=== PATIENT | female | born 1955 | race African-American/Black ===

== ENCOUNTER 2016-12-10 22:25 | Inpatient (IN) | payer OTHER ==
--- NOTE | ~2016-12-10 | CO ---
Unit #: [id number] #: [id number] Patient: TONIA LOU [id number] [address] [address] [id number] I MR#: [id number] NAME: TONIA LOU ROOM: 229 Age: 61 Sex: F Admission Date: 12/11/2016 : 1955 Attending Physician: Alvarez Carlisle M.D. Primary Care Physician: [facility] Consultation Date: 12/11/2016 CONSULTATION REPORT REASON FOR CONSULTATION Critical care management. CHIEF COMPLAINT Altered mental status. HISTORY OF PRESENT ILLNESS This 61-year-old female with past medical history of hypertension, hypothyroidism, brought in with the complaint of altered mental status and has been found to be hyperglycemic with sugar of 703 and has acute kidney injury. I am seeing the patient at the bedside. Currently, she is very lethargic but is arousable. She does not follow commands. PAST MEDICAL HISTORY 1. Diabetes. 2. Hypertension. 3. Dyslipidemia. 4. Hypothyroidism. 5. Chronic kidney disease. 6. Hysterectomy. 7. . 8. Hernia repair. HOME MEDICATIONS Unknown. ALLERGIES No known drug allergies. SOCIAL HISTORY Unknown. FAMILY HISTORY Hypertension. REVIEW OF SYSTEMS Unobtainable. PHYSICAL EXAMINATION VITAL SIGNS: Temperature 98, pulse 67, respirations 12, blood pressure 190/95. NEUROLOGIC: She is confused and lethargic. LUNGS: Bilateral air entry, bilateral mild rhonchi. HEART: S1 plus S2. Unit #: [id number] #: [id number] Patient: TONIA LOU ABDOMEN: Nontender, soft. Positive bowel sounds. EXTREMITIES: No edema. SKIN: No rashes, no ulcers. LYMPHATIC: No lymphadenopathy. DIAGNOSTIC STUDIES LABORATORY: Reviewed. IMAGING: Reviewed. ASSESSMENT AND PLAN 1. Altered mental status, rule out meningitis. 2. Uncontrolled diabetes. 3. Hypothyroidism. 4. Hypertension. 5. Zfrxk-tz-ylapxyd kidney disease. PLAN 1. Switch the insulin to the subcu insulin and continue IV fluid. 2. Taper antibiotics. 3. Will attempt an LP. 4. Neuro checks q.4 h. 5. Aspiration and fall precautions. 6. ICU protocol to control blood pressure. 7. Patient will be closely monitored. 8. Please see orders for detailed plan. 9. Will consider a neurology consultation as well. Dictated by... Farzad Bernal/ariana TD: 12/13/2016 21:15 JOB #: [id number] CONSULTATION REPORT Page 1 of 1 X Branden Powell MD CONSULTATION REPORT
--- NOTE | ~2016-12-10 | HP ---
Unit #: [id number] #: [id number] Patient: TONIA LOU [id number] [address] [place], [place] [address] [id number] I MR#: [id number] NAME: TONIA LOU ROOM: [id number] Age: 61 Sex: F Admission Date: 12/11/2016 : 1955 Attending Physician: Cindy Winchester M.D. Primary Care Physician: [facility]. HISTORY AND PHYSICAL CHIEF COMPLAINT Confusion and hyperglycemia. HISTORY This 61-year-old female with AODM, hypertension, hypothyroidism, was brought in by family for confusion. Family is no longer present. I am told that they gave history to the ER staff that the patient has become increasingly confused and hyperglycemic for the past few days. She was brought to this emergency department late last evening where she was combative, requiring 20 mg of IM Geodon. She is found to be significantly hyperglycemic with a serum glucose of 703. She had a sodium of 124 which does correct. An insulin drip has been ordered, along with 10 IV of insulin. She is extremely confused on exam and cannot provide history. Of note, the patient was admitted to this facility 05/2015 for uncontrolled diabetes mellitus, acute kidney injury and toxic metabolic encephalopathy secondary to hyperglycemia. PAST MEDICAL HISTORY 1. AODM. 2. Hypertension. 3. Hyperlipidemia. 4. Hypothyroidism. 5. Admission 05/2015 for toxic metabolic encephalopathy secondary to uncontrolled diabetes mellitus, with acute kidney injury. 6. Chronic kidney disease. 7. Hysterectomy. 8. . 9. Hernia repair. ALLERGIES No known drug allergies. HOME MEDICATIONS Uncertain. Family left. FAMILY HISTORY Hypertension, diabetes mellitus. SOCIAL HISTORY Unknown. REVIEW OF SYSTEMS Impossible to obtain as patient is quite confused. Unit #: [id number] #: [id number] Patient: TONIA LOU PHYSICAL EXAMINATION GENERAL: Confused, 61-year-old morbidly obese female. VITAL SIGNS: Temperature has not yet been obtained. Pulse 108, respirations 20, blood pressure 208/179 initially, now 106/83. HEENT: Eyes - PERRLA. Pharynx - dry mucosal membranes. NECK: Supple without adenopathy. CHEST: Clear. CARDIAC: Normal S1 and S2 without murmur. ABDOMEN: Bowel sounds are present. No hepatosplenomegaly, tenderness, or masses. EXTREMITIES: Without clubbing, cyanosis or edema. Pedal pulses are present. NEUROLOGIC: Patient is confused. She is flailing her arms and legs. DIAGNOSTIC STUDIES ADMISSION LABS: Hematocrit 37.9, normal white count and platelet count, MCV is 80. SMA 12 - glucose is 703, creatinine 1.7, sodium 124, which does correct to 134, chloride is 86, albumin 3, alk phos 131, lactic acid 2.3. ABG - pH 7.43, pCO2 41, pCO2 62, O2 saturation is 21% on room air. Cardiac markers are negative. Urinalysis positive protein and glucose with 5-10 red cells, no white cells. IMAGING STUDIES: Head CT - no acute disease, old lacunar infarct noted. Bilateral proptosis noted. Chest x-ray - no acute disease. ASSESSMENT 1. Confusion, which may be related to toxic metabolic encephalopathy from hyperglycemia. The patient presented similarly in 2015. 2. Uncontrolled type 2 diabetes mellitus. 3. Hypothyroidism. 4. Hypertension. 5. Chronic kidney disease. PLANS 1. Insulin drip. 2. Rocephin, vancomycin, and one dose of acyclovir until reassessed in the morning. Patient may need lumbar puncture if not improving. 3. IV fluids. 4. SCDs for DVT prophylaxis. 5. Monitor chemistries carefully. 6. Check thyroid function test. 7. EKG, temperature, and urine tox screen. 8. Blood pressure control. 9. Further plans depending on above. 10. Will check blood cultures. Dictated by Cindy Winchester M.D. AML/ts TD: 12/11/2016 05:46 Unit #: [id number] #: [id number] Patient: TONIA LOU JOB #: [id number] HISTORY AND PHYSICAL Page 1 of 1 X Cindy Winchester MD X HISTORY AND PHYSICAL
--- NOTE | ~2016-12-10 | FU ---
[facility] Nutrition Therapy DATE: 12/16/16 Patient: TONIA LOU Physician: ADRIA Address: [address] [facility] Room/Bed: [address] [place] [address], Zip: [place] [address] Admit Date: 12/11/16 Date of : [birth year] Height: 5 6 Weight: 263 119.5 NUTRITION MONITORING/FOLLOW-UP: Reason: CONSULT RE: DM EDUCATION RD PROVIDED WRITTEN AND VERBAL CC DIET EDUCATION. RD RE-EMPHASIZED IMPORTANCE OF CUTTING BACK ON SUGAR-SWEETENED BEVERAGES WELL FOLLOWING A CONSISTENT MEAL SCHEDULE W/BALANCED MEALS. PT REPORTS DRINKING SODA DAILY AND WILLING TO CUT BACK ON SODA INTAKE AND DRINK MORE WATER. PT REPORTED NO DIET QUESTIONS AT THIS TIME. RD TO REMAIN AVAILABLE. EXPECT PT TO HAVE MILD COMPLIANCE. RECOMMENDATIONS: 1. ENCOURAGE COMPLIANCE OF CURRENT DIET ORDER-CC+HH 2. RE-CONSULT RD IF FURTHER DIET EDUCATION NEEDED/REQUESTED Respectfully, BRANDI BELL MS, RD, LD Food and Nutritional Services [facility] cc: client file
--- NOTE | ~2016-12-10 | A ---
[facility] Nutrition Therapy DATE: 12/13/16 Patient: TONIA LOU Physician: ADRIA Address: [address] [facility] Room/Bed: [address], Zip: [place] [id number] Admit Date: 12/11/16 Date of : [birth year] Height: 5 6 Weight: 263 119.5 NUTRITIONAL ASSESSMENT: REASON: DIET EDUCATION CONSULT RD PROVIDED WRITTEN AND VERBAL CC+ WEIGHT LOSS DIET EDUCATION. RD PROVIDED LIST OF FOODS TO AVOID/LIMIT AND FOODS TO EAT MORE OFTEN. RD EMPHASIZED CONSISTANT MEAL PATTERN AND IMPORTANCE OF CUTTING BACK ON SUGAR-SWEETENED BEVERAGES. PT REPORTS DRINKING A LOT OF SODAS + CONSUMES FRIED FOOD DAILY. PT WILLING TO CUT BACK ON SODA INTAKE AND DRINK MORE WATER AND CUT BACK ON FRIED FOOD INTAKE. PT AND FAMILY REPORTED NO DIET QUESTIONS/CONCERNS AT THIS TIME. RD TO REMAIN AVAILABLE. RECOMMENDATIONS: 1. CONTINUE TO ENCOURAGE COMPLIANCE OF CURRENT DIET ORDER-CC+HH RD WILL F/U PER PROTOCOL Respectfully, BRANDI BELL MS, RD, LD Food and Nutritional Services [facility] cc: client file
--- NOTE | ~2016-12-10 | BMI ---
[facility] Nutrition Therapy DATE: 12/12/16 Patient: TONIA LOU Physician: ADRIA Address: [address] [facility] Room/Bed: [address], Zip: [place] [address] Admit Date: 12/11/16 Date of : [birth year] Height: 5 6 Weight: 255 116 HIGH BMI NOTE: DX: 61 Y.O. FEMALE ADMITTED FOR CONFUSION, UNCONTROLLED DM ANTHROPOMETRICS: 5'6", WT: 255# (116 KG), BMI: 41.2 DIET: NPO INTERVENTION: 1. NPO RECOMMENDATIONS: 1. ONCE MEDICALLY FEASIBLE, ADVANCE DIET INDICATED TO CC+HH TO PROMOTE GRADUAL WEIGHT LOSS TOWARDS HEALTHY BMI (19.0-25.0) OR +/-10%IBW RD WILL F/U PER PROTOCOL Respectfully, BRANDI BELL MS, RD, LD Food and Nutritional Services [facility] cc: client file
--- NOTE | ~2016-12-10 | CT71 ---
[facility] A Service of [facility] RADIOLOGY TEXT RESULTS PATIENT: TONIA LOU LOCATION: [address] : [birth year] UNIT #: [id number] AGE: [address]: Alvarez Carlisle MD SEX: F ORDER DR: [id number] [place] [id number] [facility]. [place], [place] [address] [id number] I MR#: [id number] Acc #: [id number] NAME: TONIA LOU : 1955 SEX: F STUDY DATE/TIME: 12/10/2016 22:27 UNIT: CIC2 ROOM: [facility] STUDY DESCRIPTION: CT Head Wo Contrast Attending Physician: Alvarez Carlisle M.D. Ordering Physician: Sly Sierra M.D. Primary Care Physician: [facility] MEDICAL IMAGING REPORT This report is preliminary unless electronic signature is present EXAM Head CT without, 12/10/2016 HISTORY Altered mental status. Disoriented. Incoherent. Confused since this morning. Combative for the study. TECHNIQUE Routine noncontrast head CT is reviewed. The study is limited by patient motion. This CT exam was performed with one or more of the following radiation dose reduction techniques: automatic exposure control, adjustment of mA and/or kV according to patient size, and iterative reconstruction. FINDINGS There is no displaced calvarial fracture. The visualized paranasal sinuses essentially clear, probably some fluid or inflammatory change right side mastoid air cells. Allowing for the motion, no gross acute intracranial hemorrhage. Chronic insult to the right anterior basal ganglia noted with encephalomalacic cavity up to about 1.3 cm largest dimension. No intracranial mass effect. Basilar cisterns are grossly patent. No hydrocephalus. Probably some chronic malacic change to the left frontal cortex laterally. No obvious acute cortical infarct but if this remains of clinical concern suggest followup imaging, referably with an MRI if the patient is a candidate. The patient has proptosis. Please correlate for any clinical concern for thyroid eye disease. IMPRESSION [facility] A Service of [facility] RADIOLOGY TEXT RESULTS PATIENT: TONIA LOU LOCATION: [address] : 53 UNIT #: [id number] AGE: [address]: Alvarez Carlisle MD SEX: F ORDER DR: 1. Motion-limited study. Allowing for this, no acute intracranial abnormality is definitely appreciated. If there is clinical concern for acute CVA followup imaging is recommended, preferably with MRI if the patient is a candidate. 2. 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 3. Bilateral proptosis. Please correlate further clinically. Is there any evidence for thyroid eye disease? Dictated by... Jil Bass M.D. THIS IS AN ELECTRONICALLY VERIFIED REPORT Jil Bass M.D. at 12/11/2016 2:45 PM BRIAN/shraddha TD: 12/11/2016 12:49 JOB #: [id number] MEDICAL IMAGING REPORT Page 1 of 1 COPY
--- NOTE | ~2016-12-10 | EKG ---
PATIENT: TONIA LOU UNIT #: [id number] Ventricular Rate: 116 BPM Atrial Rate: 116 BPM P-R Interval: 134 ms QRS Duration: 76 ms Q-T Interval: 328 ms QTC Calculation(Bezet): 455 ms P [place]: 69 degrees Calculated R [place]: 19 degrees Calculated T [place]: 74 degrees Diagnosis Line: Sinus tachycardia Diagnosis Line: Left atrial enlargement Diagnosis Line: T wave abnormality, consider anterolateral Diagnosis Line: ischemia Diagnosis Line: Abnormal ECG Diagnosis Line: When compared with ECG of 24-MAY-2015 10:37, Diagnosis Line: Nonspecific T wave abnormality now evident in Diagnosis Line: Anterolateral leads Diagnosis Line: Confirmed by ANA SHERIDAN MD ([id number]) on 12/12/2016 Diagnosis Line: 9:18:05 AM INTERPRETING MD: ARVIN DICKINSON
--- NOTE | ~2016-12-10 | CR72 ---
[facility] A Service of [facility] RADIOLOGY TEXT RESULTS PATIENT: TONIA LOU LOCATION: [address] : 53 UNIT #: [id number] AGE: [address]: Alvarez Carlisle MD SEX: F ORDER DR: [id number] [facility] [address] [place], [place] [address] [id number] I MR#: [id number] Acc #: [id number] NAME: TONIA LOU : 1955 SEX: F STUDY DATE/TIME: 12/10/2016 21:50 UNIT: [facility] ROOM: [facility] STUDY DESCRIPTION: CR Chest Single View Portable Attending Physician: Alvarez Carlisle M.D. Ordering Physician: Jerome Gonzales M.D. Primary Care Physician: On License Of [facility]. MEDICAL IMAGING REPORT This report is preliminary unless electronic signature is present EXAM AP portable chest 12/10/2016 HISTORY 61-year-old female in the ED complaining of shortness of air, weakness and disorientation beginning earlier this morning. TECHNIQUE AP portable chest x-ray. FINDINGS Heart size and pulmonary vascularity are within normal limits given AP portable technique. No visible pulmonary infiltrate or pleural effusion. No significant change since 05/24/2015. IMPRESSION No active disease. Dictated by... López Phillip M.D. THIS IS AN ELECTRONICALLY VERIFIED REPORT López Phillip M.D. at 12/11/2016 10:05 PM MAX/nga TD: 12/11/2016 12:49 JOB #: [id number] MEDICAL IMAGING REPORT Page 1 of 1 COPY
--- NOTE | ~2016-12-10 | DS ---
Unit #: [id number] #: [id number] Patient: TONIA LOU [id number] [address] [place], [place] [address] [id number] I MR#: [id number] NAME: TONIA LOU ROOM: 229 Age: 61 Sex: F Admission Date: 12/11/2016 : 1955 Discharge Date: 12/16/2016 Attending Physician: Abraham Sharp M.D. Primary Care Physician: [facility]. DISCHARGE SUMMARY DISCHARGE DIAGNOSES 1. Hyperosmotic hyperglycemic nonketotic, resolved at this time. 2. Toxic metabolic encephalopathy due to #1, resolved. 3. Type 2 diabetes with hyperglycemia, uncontrolled A1c at 15, blood sugar is improving. 4. Likely obstructive sleep apnea. Will follow up with (1) outpatient. 5. Deconditioning. She will be discharged to rehab. 6. Acute kidney injury on chronic stage 2 kidney disease. Creatinine today is 1.1. 7. Hyponatremia. Sodium today is 127. [employer] REPRESENTATIVE Dr. Powell of Pulmonary. PROCEDURES None. DIAGNOSTIC STUDIES LABORATORY: BMP with glucose of 163, BUN 20, creatinine 1.1, sodium 127, potassium 4.5, chloride 97, CO2 of 22, calcium 8, phosphorus 2, magnesium 2.2, total protein 5.8, albumin 2.1, total bilirubin 0.5, AST 14, ALT 12, and alkaline phosphatase 87. When assessed, her total cholesterol was 220, triglycerides 190, LDL 156, and HDL 26. When assessed, her TSH was 1.21 and free T4 was 1.12. CBC with WBC of 8.4, RBC 3.69, hemoglobin 9.2, hematocrit 28.7, MCV 77.7, MCH 24.9, MCHC 32, RDW 14.1, platelets 288,000, and MPV is 9.2. IMAGING: Chest x-ray on December 10, 2016, impression: No active disease. Head CT on December 10, 2016, impression: No acute intracranial abnormality is definitely appreciated. Old lacunar-type insult, right anterior basal ganglia, and probably a small focus of cortical malacia at the left lateral frontal cortex. Bilateral proptosis. HOSPITAL COURSE Patient is a pleasant 61-year-old female with a past medical history of type 2 diabetes, essential hypertension, and hypothyroidism, who was brought to the emergency department by her family due to confusion. Patient had become increasingly confused and hyperglycemic in the past couple of days prior to admission. In the emergency department, she was combative requiring 20 mg of IM Geodon. She was found to be significantly hyperglycemic with a serum glucose of 703. She had a sodium of 124. An insulin drip was utilized. She was admitted through the emergency department on an insulin drip and was empirically treated with Rocephin, Unit #: [id number] #: [id number] Patient: DASHA,TONIA vancomycin, and acyclovir. For her altered mental status and confusion, we had checked an ammonia level which was unremarkable found to be at 27. Dr. Lu [facility] was consulted for intensive care management. The following day, patient's blood glucose was much improved. It was down to 228. Therefore, it was felt that patient was stable to start subcutaneous long-acting insulin and to discontinue the IV insulin drip, and she was transferred back down to a regular telemetry bed. After resolution of the hyperosmotic hyperglycemic event, patient was much more alert and oriented and was participating much better. We had considered doing a lumbar puncture for patient's state of much altered mental status, but due to resolution of the toxic metabolic encephalopathy state and blood culture with no growth, IV antibiotics and acyclovir were discontinued, and lumbar puncture was not needed. We did ask Speech Therapy to evaluate patient, and she was found to have no signs of aspiration. Therefore, she was resumed on a heart-healthy diet. With regards to her current state, we did assess a lipid panel which did find that her total cholesterol was 220 and triglycerides were 190. Therefore, Lipitor was started. At this time, patient's reason for admission of altered mental status thought secondary to the hyperosmotic hyperglycemic state has resolved, but she has deconditioned much. Therefore, she was seen in consultation by Physical and Occupational Therapy who has recommended that patient continue with therapy at a subacute rehab facility. DISPOSITION She is discharged in stable condition to [facility]. FOLLOWUP 1. Follow up with Dr. Powell in two weeks. 2. Follow up with primary care physician within one to two weeks. DISCHARGE DIET Heart-healthy with consistent carbohydrate diet. DISCHARGE INSTRUCTIONS 1. Please obtain routine vitals upon admission and routinely thereafter. 2. Accu-Cheks before meals and at bedtime. ACTIVITY Resume activity with PT and OT. Ambulate every day as tolerated. DISCHARGE MEDICATIONS 1. Gabapentin. We will be reducing this to 100 mg orally at bedtime, stopping the amitriptyline at that time. 2. Metformin 1000 mg orally twice daily. 3. Zyrtec 10 mg orally daily. 4. Norvasc 10 mg orally daily. 5. Toprol-XL 150 mg orally daily. 6. Lipitor 40 mg orally at bedtime. 7. Accupril 40 mg orally daily. 8. Lantus 36 units subcutaneously daily. 9. NovoLog low-dose sliding scale prior to meals and at bedtime. Unit #: [id number] #: [id number] Patient: TONIA LOU 10. Levothyroxine 0.112 mg orally daily. This discharge took 45 minutes to include patient education and to coordinate care. Dictated by... Js Kelsey PA-C for Farzad Khan TD: 12/16/2016 16:41 JOB #: [id number] CC: [facility] 2a DISCHARGE SUMMARY Page 1 of 1 X X DISCHARGE SUMMARY
[2016-12-10 21:34] LABS: BASOPHIL# 0.1 X10e3 (0-0.3); BASOPHIL% 0.9 % (0-2.5); HEMATOCRIT 37.9 % (35.0-45.0); HEMOGLOBIN 11.7 gm/dL (12.0-16.0); LYMPHOCYTE# 2.2 X10e3 (1.0-3.5); MEAN CELL VOLUME 79.7 FL (83-96); MEAN CORPUSCULAR HEMOGLOBIN 24.7 PG (28-34); MEAN PLATELET VOLUME 9.4 FL (6.5-11.5); MONOCYTE# 0.5 X10e3 (0-1.0); MONOCYTE% 7.1 % (3.0-12.0); NEUTROPHIL# 4.7 X10e3 (1.5-7.1); PLATELET COUNT 299 X10e3 (140-420); RED BLOOD COUNT 4.76 X10e (3.90-5.30); RED CELL DISTRIBUTION WIDTH 14.9 % (11.0-15.5); WHITE BLOOD COUNT 7.4 X10e3 (4.0-10.5)
[2016-12-10 21:38] LABS: DIFF IND NO
[2016-12-10 22:00] LABS: BETA HYDROXYBUTYRATE 0.15 MMOL/L (0.02-0.27); BILIRUBIN, DIRECT 0.1 mg/dL (0.0-0.2); BILIRUBIN,INDIRECT 0.6 mg/dL (0.0-0.9); BILIRUBIN,TOTAL 0.7 mg/dL (0.2-2.0); CALCIUM SERUM 8.6 mg/dL (8.4-10.2); CREATININE SERUM 1.7 mg/dL (0.6-1.4); POTASSIUM 4.3 mmol/L (3.5-5.1); PROTEIN TOTAL SERUM 7.9 g/dL (6.0-8.3)
[~2016-12-10 22:25] MED LIST: ACCUPRIL40 MG PO; ALLERGY10 M2 PO; ASPIRIN EC81 M1 PO; CHLORTHALIDONE50 M1 PO; DOXYCYCLINE HY100 M1 PO; FIORICET 50-321 EACH PO; LANTUS100 U/ML SUBQ; LANTUS100 UNITS/ SUBQ; LIPITOR40 MG PO; METFORMIN HCL500 M1 PO; METFORMIN PO; NEURONTIN300 MG PO; NORVASC PO; NORVASC10 MG PO; SYNTHROID112 MCG PO; TOPROL XL50 MG PO; TRAMADOL HCL50 M2 PO
[2016-12-10 22:37] LABS: POC - CKMB 2.1 ng/mL (0.0-7.9); POC - TROPONIN <0.05 ng/mL (<=0.05)
[2016-12-10 22:49] LABS: URINE SOURCE CLEAN CATCH
[2016-12-10 22:52] LABS: URINE APPEARANCE CLOUDY; URINE BILIRUBIN NEG (NEG); URINE BLOOD 1+ (NEG); URINE COLOR YELLOW; URINE GLUCOSE >1000 MG/DL (NEG); URINE KETONE NEG (NEG); URINE LEUKOCYTE ESTERASE NEG (NEG); URINE NITRATE NEG (NEG); URINE PROTEIN 2+ (NEG); URINE SPECIFIC GRAVITY 1.033 (1.003-1.035); URINE UROBILINOGEN 0.2 MG/DL (NEG)
[2016-12-10 22:55] LABS: URINE BACTERIA AUWI NEG (NEGATIVE); URINE SQUAMOUS EPITHELIAL CELL NONE SEEN /[HPF]; UWBCS1 AUWI 0-2 (0-5)
[2016-12-10 23:05] LABS: CULTURE INDICATED? NO
[2016-12-10 23:13] LABS: ARTERIAL BLD GAS O2 SATURATION 91.2 % (90.0-100.0); ARTERIAL BLOOD GAS CARBOXY HB 0.7 %sat (0.0-9.0); ARTERIAL BLOOD GAS HCO3 27.8 mmol/L; ARTERIAL BLOOD GAS MET HB 0.7 %sat (0.0-2.0); ARTERIAL BLOOD GAS PCO2 41.2 mmHg (35.0-45.0); ARTERIAL BLOOD GAS pH 7.437 (7.350-7.450)
[2016-12-10 23:14] LABS: ARTERIAL BLOOD GAS ALLEN TEST NORMAL; ARTERIAL BLOOD GAS ART SITE LEFT RADIAL; ARTERIAL BLOOD GAS DELIVERY ROOM AIR; ARTERIAL BLOOD GAS PO2 62.1 mmHg (80.0-100); ARTERIAL DRAW? YES
[2016-12-11 08:06] LABS: BASOPHIL# 0.1 X10e3 (0-0.3); BASOPHIL% 0.6 % (0-2.5); DIFF IND NO; HEMATOCRIT 30.9 % (35.0-45.0); LYMPHOCYTE# 1.9 X10e3 (1.0-3.5); LYMPHOCYTE% 21.5 % (17.0-45.0); MEAN CELL VOLUME 77.5 FL (83-96); MEAN CORPUSCULAR HGB CONC 32.2 g/dL (30-36); MEAN PLATELET VOLUME 9.7 FL (6.5-11.5); MONOCYTE# 0.7 X10e3 (0-1.0); MONOCYTE% 8.1 % (3.0-12.0); NEUTROPHIL# 6.1 X10e3 (1.5-7.1); NEUTROPHIL% 69.8 % (40-75); PLATELET COUNT 233 X10e3 (140-420); RED BLOOD COUNT 3.98 X10e (3.90-5.30); RED CELL DISTRIBUTION WIDTH 14.6 % (11.0-15.5); THYROID STIMULATING HORMONE 1.21 uIU/ml (0.34-5.60); WHITE BLOOD COUNT 8.8 X10e3 (4.0-10.5)
[2016-12-11 08:13] LABS: ALBUMIN SERUM 2.3 g/dL (3.5-5.0); ALKALINE PHOSPHATASE 87 U/L (32-92); ALT (SGPT) 12 U/L (10-40); AST (SGOT) 12 U/L (10-42); BILIRUBIN,TOTAL 0.6 mg/dL (0.2-2.0); BLOOD UREA NITROGEN 12 mg/dL (9-23); CALCIUM SERUM 7.3 mg/dL (8.4-10.2); CARBON DIOXIDE 22 mmol/L (22-31); CHLORIDE 93 mmol/L (100-111); CREATININE SERUM 1.1 mg/dL (0.6-1.4); FREE THYROXIN (T4) 1.12 ng/dL (0.58-1.64); GLOM FILT RATE Estimated ABOVE60 mL/min (>60); GLUCOSE FASTING 228 mg/dL (70-110); POTASSIUM 3.2 mmol/L (3.5-5.1); PROTEIN TOTAL SERUM 6.1 g/dL (6.0-8.3)
[2016-12-11 08:14] LABS: SODIUM 123 mmol/L (135-145)
[2016-12-11] MEDS ORDERED: LEVOTHYROXINE112 MCG PO (10:00)
[2016-12-11] MEDS ORDERED: METFORMIN HCL500 M1 PO (10:00)
[2016-12-11] MEDS ORDERED: LANTUS100 U/ML SUBQ (10:01)
[2016-12-11] MEDS ORDERED: NORVASC10 MG PO (10:01)
[2016-12-11] MEDS ORDERED: ZYRTEC10 M2 PO (10:01)
[2016-12-11] MEDS ORDERED: AMITRYPTYLINE PO (10:02)
[2016-12-11] MEDS ORDERED: GABAPENTIN300 M2 PO (10:02)
[2016-12-11] MEDS ORDERED: ACCUPRIL40 MG PO (10:02)
[2016-12-11] MEDS ORDERED: TOPROL XL PO (10:03)
[2016-12-11 13:34] LABS: BUN/CREATININE RATIO 9.23; CALCIUM SERUM 7.8 mg/dL (8.4-10.2); CREATININE SERUM 1.3 mg/dL (0.6-1.4); GLOM FILT RATE Estimated 53.2 mL/min (>60); POTASSIUM 3.6 mmol/L (3.5-5.1)
[2016-12-11 13:39] LABS: AMPHETAMINE NEG (NEG); BARBITURATES NEG (NEG); BENZODIAZEPINES NEG (NEG); COCAINE NEG (NEG); MARIJUANA NEG (NEG); OPIATES NEG (NEG); TRICYCLIC ANTIDEPRESSANTS POS (NEG); U METHADONE NEG (NEG)
[2016-12-12 05:34] LABS: BASOPHIL# 0.1 X10e3 (0-0.3); BASOPHIL% 0.9 % (0-2.5); HEMATOCRIT 31.6 % (35.0-45.0); LYMPHOCYTE# 2.3 X10e3 (1.0-3.5); LYMPHOCYTE% 32.1 % (17.0-45.0); MEAN CELL VOLUME 78.7 FL (83-96); MEAN CORPUSCULAR HEMOGLOBIN 24.8 PG (28-34); MEAN CORPUSCULAR HGB CONC 31.5 g/dL (30-36); MEAN PLATELET VOLUME 9.3 FL (6.5-11.5); MONOCYTE# 0.6 X10e3 (0-1.0); MONOCYTE% 9.1 % (3.0-12.0); NEUTROPHIL# 4.1 X10e3 (1.5-7.1); NEUTROPHIL% 57.9 % (40-75); PLATELET COUNT 236 X10e3 (140-420); RED BLOOD COUNT 4.02 X10e (3.90-5.30); RED CELL DISTRIBUTION WIDTH 14.7 % (11.0-15.5); WHITE BLOOD COUNT 7.1 X10e3 (4.0-10.5)
[2016-12-12 05:39] LABS: DIFF IND NO
[2016-12-12 06:21] LABS: ALBUMIN SERUM 2.1 g/dL (3.5-5.0); BILIRUBIN,TOTAL 0.2 mg/dL (0.2-2.0); BUN/CREATININE RATIO 11.53; CALCIUM SERUM 7.9 mg/dL (8.4-10.2); CREATININE SERUM 1.3 mg/dL (0.6-1.4); GLOM FILT RATE Estimated 53.2 mL/min (>60); POTASSIUM 4.5 mmol/L (3.5-5.1); PROTEIN TOTAL SERUM 5.6 g/dL (6.0-8.3)
[2016-12-12 12:36] LABS: CHOLESTEROL 220 mg/dL (0-200); HDL CHOLESTEROL 26 mg/dL (35-95); LDL/HDL RATIO 6 RATIO (0-4); TRIGLYCERIDES 190 mg/dL (10-160)
[2016-12-12 12:41] LABS: LDL CHOLESTEROL 156 mg/dL (-130)
[2016-12-13 05:30] LABS: BASOPHIL# 0.1 X10e3 (0-0.3); BASOPHIL% 0.9 % (0-2.5); HEMATOCRIT 33.5 % (35.0-45.0); HEMOGLOBIN 10.4 gm/dL (12.0-16.0); LYMPHOCYTE# 1.7 X10e3 (1.0-3.5); LYMPHOCYTE% 20.6 % (17.0-45.0); MEAN CELL VOLUME 78.9 FL (83-96); MEAN CORPUSCULAR HEMOGLOBIN 24.6 PG (28-34); MEAN CORPUSCULAR HGB CONC 31.2 g/dL (30-36); MEAN PLATELET VOLUME 9.7 FL (6.5-11.5); MONOCYTE# 0.8 X10e3 (0-1.0); MONOCYTE% 9.5 % (3.0-12.0); NEUTROPHIL# 5.6 X10e3 (1.5-7.1); PLATELET COUNT 247 X10e3 (140-420); RED BLOOD COUNT 4.24 X10e (3.90-5.30); RED CELL DISTRIBUTION WIDTH 15.1 % (11.0-15.5); WHITE BLOOD COUNT 8.1 X10e3 (4.0-10.5)
[2016-12-13 05:43] LABS: DIFF IND NO
[2016-12-13 06:20] LABS: ALBUMIN SERUM 2.1 g/dL (3.5-5.0); BILIRUBIN,TOTAL 0.5 mg/dL (0.2-2.0); BUN/CREATININE RATIO 11.66; CALCIUM SERUM 7.8 mg/dL (8.4-10.2); CREATININE SERUM 1.2 mg/dL (0.6-1.4); GLOM FILT RATE Estimated 55.7 mL/min (>60); POTASSIUM 4.9 mmol/L (3.5-5.1); PROTEIN TOTAL SERUM 5.8 g/dL (6.0-8.3)
[2016-12-14 05:41] LABS: HEMATOCRIT 29.9 % (35.0-45.0); HEMOGLOBIN 9.4 gm/dL (12.0-16.0); MEAN CELL VOLUME 78.9 FL (83-96); MEAN CORPUSCULAR HEMOGLOBIN 24.8 PG (28-34); MEAN CORPUSCULAR HGB CONC 31.5 g/dL (30-36); MEAN PLATELET VOLUME 9.7 FL (6.5-11.5); RED BLOOD COUNT 3.8 X10e (3.90-5.30); RED CELL DISTRIBUTION WIDTH 14.9 % (11.0-15.5)
[2016-12-14 06:36] LABS: BUN/CREATININE RATIO 13.12; CALCIUM SERUM 8.1 mg/dL (8.4-10.2); CREATININE SERUM 1.6 mg/dL (0.6-1.4); GLOM FILT RATE Estimated 39.4 mL/min (>60); MAGNESIUM 2.1 mg/dL (1.6-3.0); POTASSIUM 5.1 mmol/L (3.5-5.1)
[2016-12-15 06:29] LABS: HEMATOCRIT 28.6 % (35.0-45.0); HEMOGLOBIN 9.1 gm/dL (12.0-16.0); MEAN CORPUSCULAR HEMOGLOBIN 24.7 PG (28-34); MEAN CORPUSCULAR HGB CONC 31.7 g/dL (30-36); MEAN PLATELET VOLUME 9.2 FL (6.5-11.5); RED BLOOD COUNT 3.67 X10e (3.90-5.30); RED CELL DISTRIBUTION WIDTH 15.4 % (11.0-15.5); WHITE BLOOD COUNT 8.9 X10e3 (4.0-10.5)
[2016-12-15 06:51] LABS: BUN/CREATININE RATIO 15.71; CREATININE SERUM 1.4 mg/dL (0.6-1.4); GLOM FILT RATE Estimated 46.2 mL/min (>60); POTASSIUM 4.8 mmol/L (3.5-5.1)
[2016-12-16 05:22] LABS: HEMATOCRIT 28.7 % (35.0-45.0); HEMOGLOBIN 9.2 gm/dL (12.0-16.0); MEAN CELL VOLUME 77.7 FL (83-96); MEAN CORPUSCULAR HEMOGLOBIN 24.9 PG (28-34); MEAN PLATELET VOLUME 9.2 FL (6.5-11.5); RED BLOOD COUNT 3.69 X10e (3.90-5.30); RED CELL DISTRIBUTION WIDTH 14.9 % (11.0-15.5); WHITE BLOOD COUNT 8.4 X10e3 (4.0-10.5)
[2016-12-16 06:19] LABS: BUN/CREATININE RATIO 18.18; CREATININE SERUM 1.1 mg/dL (0.6-1.4); GLOM FILT RATE Estimated 61.9 mL/min (>60); MAGNESIUM 2.2 mg/dL (1.6-3.0); POTASSIUM 4.5 mmol/L (3.5-5.1)
== END 2016-12-16 17:44 | DRG 637 ==
LOC: CED 22:25 → CEDOF 12-11 00:20 → CICCU2 12-11 08:41 → C2A 12-13 12:43
PROVIDERS: Emergency Medicine; Internal Medicine
DX: E11.00 Type 2 diabetes mellitus with hyperosmolarity without nonketotic hyperglycemic-hyperosmolar coma (NKHHC) (principal); G92 Toxic encephalopathy; N17.9 Acute kidney failure, unspecified; E87.1 Hypo-osmolality and hyponatremia; E11.65 Type 2 diabetes mellitus with hyperglycemia; Z79.4 Long term (current) use of insulin; G47.33 Obstructive sleep apnea (adult) (pediatric); I12.9 Hypertensive chronic kidney disease with stage 1 through stage 4 chronic kidney disease, or unspecified chronic kidney disease; N18.2 Chronic kidney disease, stage 2 (mild); E03.9 Hypothyroidism, unspecified; Z90.710 Acquired absence of both cervix and uterus; Z83.3 Family history of diabetes mellitus; Z82.49 Family history of ischemic heart disease and other diseases of the circulatory system
CPT/HCPCS: 36600; 51702; 70450; 71010; 80048; 80053; 80061; 80076; 80307; 81003; 82010; 82140; 82308; 82553; 82803; 82947; 83036; 83605; 83735; 84439; 84443; 84484; 85025; 85027; 87040; 93005; 94660; 94760; 96372; 97116; 97163; 97166; 97530; 97535; 99291; C1713; C9113; J0133; J0360; J0696; J1650; J1815; J2060; J3370; J3475; J3486; J3490